=== PATIENT | male | born 2000 | race Caucasian/White ===

== ENCOUNTER 2024-01-26 03:45 | Inpatient (IN) | payer OTHER ==
[2024-01-26] VITALS (7 sets, daily range): BP systolic 108–141; BP diastolic 46–79; PULSE 81–94; RESP 16–18; TEMP 97–98.7; O2SAT 94–100
[~2024-01-26] VITALS: Ht 182.9 cm; Wt 127.0 kg
[2024-01-26 05:41] LABS: BASOPHILS # (AUTO) 0.1 K/uL (0.00-0.22); BASOPHILS % (AUTO) 0.3 % (0.0-2.0); EOSINOPHILS % (AUTO) 0.1 % (0.0-4.0); HEMATOCRIT 43.9 % (36-52); HEMOGLOBIN 14.8 g/dL (12.0-18.0); LYMPHOCYTES # (AUTO) 1.6 K/uL (2.0-11.5); LYMPHOCYTES % (AUTO) 8.6 % (20.5-51.1); MEAN CORPUSCULAR HEMOGLOBIN 28 pg (27-31); MEAN CORPUSCULAR HGB CONC 34 g/dL (33-37); MEAN CORPUSCULAR VOLUME 82.5 fL (80-94); MONOCYTES # (AUTO) 0.7 K/uL (0.8-1.0); MONOCYTES % (AUTO) 3.5 % (1.7-9.3); NEUTROPHILS # (AUTO) 16.7 K/uL (1.8-7.7); NEUTROPHILS % (AUTO) 87.5 % (42.2-75.2); PLATELET COUNT (AUTO) 316 K/uL (140-450); RED BLOOD CELL COUNT(AUTO) 5.32 MIL/uL (4.20-6.10); RED CELL DISTRIBUTION WIDTH 14.4 % (11.6-13.7); WHITE BLOOD COUNT (AUTO) 19.1 K/uL (4.8-10.8)
[2024-01-26 06:01] LABS: ALBUMIN 3.9 g/dL (3.4-5.0); ANION GAP 13.4 (8-16); CALCIUM 9.5 mg/dL (8.5-10.1); CARBON DIOXIDE 26.2 mmol/L (21-32); CREATININE 0.8 mg/dL (0.6-1.3); POTASSIUM 3.6 mmol/L (3.5-5.1); TOTAL BILIRUBIN 0.4 mg/dL (0.0-1.0); TOTAL PROTEIN, SERUM 9.6 g/dL (6.4-8.2)
[2024-01-26] MEDS: NACL 0.9% 1,000 ML IV ONE (06:01)
[2024-01-26] MEDS: ONDANSETRON 4 MG/2 ML VIAL IVP ONE (06:02)
[2024-01-26] MEDS: MORPHINE SULFATE 4 MG/ML SYR IVP ONE (06:03)
[2024-01-26] MEDS ORDERED: MORPHINE SULFATE 4 MG/ML SYR IVP PRN (06:25)
[2024-01-26] MEDS ORDERED: MAGNESIUM OXIDE 400 MG TAB PO PRN (06:25)
[2024-01-26] MEDS ORDERED: HYDROcodone/APAP 5/325 MG 1 TAB TAB PO PRN (06:25)
[2024-01-26] MEDS ORDERED: ACETAMINOPHEN 325 MG TAB PO PRN (06:25)
[2024-01-26] MEDS ORDERED: ONDANSETRON 4 MG/2 ML VIAL IVP PRN ×3 (06:25→10:05)
[2024-01-26] MEDS ORDERED: MAG SULF 2000 MG/WATER PREMIX 50 ML IV PRN (06:25)
[2024-01-26] MEDS: NACL 0.9% 1,000 ML IV SCH (06:25)
[2024-01-26] MEDS ORDERED: KCL 20 MEQ IN 100 mL PREMIX 200 ML IV PRN (06:25)
[2024-01-26] MEDS ORDERED: PIPERACILLIN/TAZOBACTAM 4.5 GM VIAL IV ONE (06:30)
[2024-01-26] MEDS: PIPERACILLIN/TAZOBACTAM 4.5 GM in DEXTROSE 5% 100 ML IV ONE (06:38)
[2024-01-26] MEDS ORDERED: ceFAZolin 1,000 MG VIAL ONE (07:57)
[2024-01-26] MEDS: LIDOCAINE/EPI 1% 1:100000 20 ML VIAL INJ ONE (08:14)
[2024-01-26] MEDS: BUPIVACAINE-MPF 0.25% 30 ML VIAL INJ ONE (08:15)
[2024-01-26] MEDS: ceFAZolin 1,000 MG VIAL ONE (08:27)
[2024-01-26] MEDS ORDERED: PROPOFOL 200 MG/20 ML VIAL IV ONE (09:00)
[2024-01-26] MEDS ORDERED: SEVOFLURANE 250 ML BTL INH ONE (09:00)
[2024-01-26] MEDS: ceFAZolin 2,000 MG VIAL ONE ×2 (09:00→09:30)
[2024-01-26] MEDS ORDERED: KETOROLAC 30 MG/ML VIAL ONE (09:00)
[2024-01-26] MEDS: SUCCINYLCHOLINE CHLORIDE 200 MG/10 ML VIAL IVP ONE (09:10)
[2024-01-26] MEDS: ROCURONIUM 50 MG/5 ML VIAL IV ONE (09:10)
[2024-01-26] MEDS: HYDROmorphone PFS 2 MG/ML SYR ONE ×2 (09:10→10:58)
[2024-01-26] MEDS ORDERED: HYDROmorphone 1 MG/ML AMP IVP PRN (09:20)
[2024-01-26] MEDS: METOCLOPRAMIDE 10 MG/2 ML INJ VIAL ONE (09:36)
[2024-01-26] MEDS: SUGAMMADEX SODIUM 200 MG/2 ML VIAL IV ONE (09:36)
[2024-01-26] MEDS: ONDANSETRON 4 MG/2 ML VIAL ONE (10:00)
[2024-01-26] MEDS: HYDROmorphone 1 MG/ML AMP IVP PRN (10:55)
[2024-01-26] MEDS: PIPERACILLIN/TAZOBACTAM 3.375 GM in DEXTROSE 5% 50 ML IV SCH (12:00)
[2024-01-26] MEDS: MEDS-TO-BEDS MC SCH (21:00)
[2024-01-26] MEDS: HYDROcodone/APAP 5/325 MG 1 TAB TAB PO PRN (23:40)
[2024-01-27 04:00] VITALS: BP 120/66; PULSE 83; RESP 18; TEMP 98.6; O2SAT 94
[2024-01-27 06:34] LABS: BASOPHILS % (AUTO) 0.2 % (0.0-2.0); EOSINOPHILS % (AUTO) 0.4 % (0.0-4.0); LYMPHOCYTES % (AUTO) 28.7 % (20.5-51.1); MEAN CORPUSCULAR HEMOGLOBIN 28 pg (27-31); MEAN CORPUSCULAR HGB CONC 32 g/dL (33-37); MEAN CORPUSCULAR VOLUME 84.8 fL (80-94); MONOCYTES % (AUTO) 9.3 % (1.7-9.3); NEUTROPHILS # (AUTO) 6.5 K/uL (1.8-7.7); NEUTROPHILS % (AUTO) 61.4 % (42.2-75.2); PLATELET COUNT (AUTO) 270 K/uL (140-450); RED BLOOD CELL COUNT(AUTO) 4.72 MIL/uL (4.20-6.10); RED CELL DISTRIBUTION WIDTH 14.2 % (11.6-13.7); WHITE BLOOD COUNT (AUTO) 10.6 K/uL (4.8-10.8)
[2024-01-27 06:54] LABS: ANION GAP 15.2 (8-16); CALCIUM 8.2 mg/dL (8.5-10.1); CARBON DIOXIDE 28.2 mmol/L (21-32); CREATININE 0.9 mg/dL (0.6-1.3); MAGNESIUM 1.9 mg/dL (1.8-2.4); POTASSIUM 3.4 mmol/L (3.5-5.1); TOTAL BILIRUBIN 0.6 mg/dL (0.0-1.0); TOTAL PROTEIN, SERUM 7.9 g/dL (6.4-8.2)
[2024-01-27 08:00] VITALS: BP 121/73; PULSE 102; RESP 17; TEMP 97.4; O2SAT 97
[2024-01-27] MEDS: POTASSIUM CHLORIDE 10 MEQ TABER PO PRN (09:12)
[2024-01-27 09:56] VITALS: PULSE 88; RESP 18; O2SAT 97
[2024-01-27] MEDS ORDERED: ACET-10509 PO (13:34)
[2024-01-27] MEDS ORDERED: ACET-8905 PO (14:12)
[2024-01-27] MEDS ORDERED: MEDS-TO-BEDS MC SCH (21:00)
== END 2024-01-27 14:30 | disposition home or self-care (01) | DRG 234 ==
LOC: MED 03:45 → OBSVTOIN 06:24 → MTU 06:24 → MMU 06:24 → MTU 06:41
PROVIDERS: ADMIT Hospitalist; ATTEND Hospitalist
PROC: 0DTJ0ZZ Resection of Appendix, Open Approach (ICD-10-PCS; principal; 2024-01-26 08:30)
DX: K35.80 Unspecified acute appendicitis (principal); R65.10 Systemic inflammatory response syndrome (SIRS) of non-infectious origin without acute organ dysfunction; E11.9 Type 2 diabetes mellitus without complications
CPT/HCPCS: 36415; 80053; 82948; 83690; 83735; 85025; 87040; 87081; 88304; 96361; 96365; 96375; 99285; J0330; J0690; J1170; J1644; J1885; J2001; J2270; J2405; J2543; J2704; J2765; J3490; J7030; J7060